=== PATIENT | male | born 1955 | race Caucasian/White ===

== ENCOUNTER → 2018-03-10 | Outpatient (CLI) | payer OTHER ==
--- NOTE | 2018-03-10 11:50 | RAD ---
EXAM: Head CT without contrast. HISTORY: Trauma one year ago. Headaches. TECHNIQUE: Computed tomographic images of the head were obtained without contrast. *One or more of the following individualized dose reduction techniques were utilized for this examination: 1. Automated exposure control. 2. Adjustment of the mA and/or kV according to patient size. 3. Use of iterative reconstruction technique. COMPARISON: None. FINDINGS: There is no acute or subacute extra-axial or intraparenchymal hemorrhage. There is no mass effect or midline shift. There is no hydrocephalus. There is mild age-appropriate cerebral volume loss. There is mild right ethmoid and sphenoid sinus mucosal thickening. There is evidence of lens surgery. There are suspected right antrostomy/uncinectomy changes. There is a tiny amount of fluid within the mastoid air cells. IMPRESSION: No acute intracranial findings. Electronically signed by: Alexia Chavez MD (03/10/2018 11:45 AM) [id number]
== END | disposition home or self-care (01) ==
LOC: CT 10:57
PROVIDERS: ATTEND Registered Nurse
DX: S09.90XD Unspecified injury of head, subsequent encounter (principal); X58.XXXD Exposure to other specified factors, subsequent encounter
CPT/HCPCS: 70450

== ENCOUNTER 2018-06-02 09:57 | Emergency (ER) | payer OTHER ==
[~2018-06-02] VITALS: Ht 167.6 cm; Wt 94.6 kg
--- NOTE | 2018-06-02 10:22 | PHYS DOC ---
Past History Past Medical History: GERD, Hypertension Past Surgical History: Other Alcohol Use: Occasionally Drug Use: None Adult General Chief Complaint Chief Complaint: DIARRHEA HPI HPI Patient is a 62-year-old male presents with diarrhea. This started 2 days ago. He notes that is black stool. Denies any significant abdominal pain. Prior to having the diarrhea, he had [facility]. He had blood work obtained just before the diarrhea started and received the results today by being told that he needed to present to the emergency department due to severely low sodium. Patient denies any significant abdominal pain. Denies any nausea or vomiting. Denies any recent travel or weight loss. Nothing seems to make the symptoms better or worse. Denies any lightheadedness.[] Review of Systems Review of Systems Constitutional: Denies fever or chills [] Eyes: Denies change in visual acuity, redness, or eye pain [] HENT: Denies nasal congestion or sore throat [] Respiratory: Denies cough or shortness of breath [] Cardiovascular: No chest pain or palpitations[] GI: See history of present illness[] : Denies dysuria or hematuria [] Musculoskeletal: Denies back pain or joint pain [] Integument: Denies rash or skin lesions [] Neurologic: Denies headache, focal weakness or sensory changes [] Endocrine: Denies polyuria or polydipsia [] All other systems were reviewed and found to be within normal limits, except as documented in this note. Current Medications Current Medications Current Medications Medications (Trade) Dose Ordered Sig/Petey Start Time Stop Time Status Last Admin Dose Admin Hyoscyamine (Anaspaz) 0.125 mg 1X ONCE 06/02/18 10:30 06/02/18 10:31 UNV Sodium Chloride 1,000 ml @ 1,000 mls/hr 1X ONCE 06/02/18 10:30 06/02/18 11:29 UNV Allergies Allergies Allergies Coded Allergies Type Severity Reaction Last Updated Verified No Known Drug Allergies 06/02/18 No Physical Exam Physical Exam Constitutional: Well developed, well nourished, no acute distress, non-toxic appearance. [] HENT: Normocephalic, atraumatic, bilateral external ears normal, oropharynx moist, no oral exudates, nose normal. [] Eyes: PERRLA, EOMI, conjunctiva normal, no discharge. [] Neck: Normal range of motion, no tenderness, supple, no stridor. [] Cardiovascular:Heart rate regular rhythm, no murmur [] Lungs & Thorax: Bilateral breath sounds clear to auscultation [] Abdomen: Bowel sounds normal, soft, no tenderness, no masses, no pulsatile masses. [] Skin: Warm, dry, no erythema, no rash. [] Back: No tenderness, no CVA tenderness. [] Extremities: No tenderness, no cyanosis, no clubbing, ROM intact, no edema. [] Neurologic: Alert and oriented X 3, normal motor function, normal sensory function, no focal deficits noted. [] Psychologic: Affect normal, judgement normal, mood normal. [] Current Patient Data Vital Signs Vital Signs Date Time Temp Pulse Resp B/P (MAP) Pulse Ox O2 Delivery O2 Flow Rate FiO2 06/02/18 10:14 98.1 70 16 99 Room Air EKG EKG [] Radiology/Procedures Radiology/Procedures [] Course & Med Decision Making Course & Med Decision Making Pertinent Labs and Imaging studies reviewed. (See chart for details) ED course: Patient arrived, was placed in bed, and tolerated exam well. IV fluids were started. After the return of the laboratory studies, a dose of Protonix was given. Findings were discussed with patient who voiced understanding. Consultation was made with hospitalist service who graciously accepted but recommended the patient be transferred to [facility] due to both nephro and GI availability. [facility] Patient was transferred in improved condition. Medical decision making: Patient has hyponatremia along with evidence of a GI bleed. He is not dangerously anemic given his normal H&H at this time. Patient is being admitted/transferred for further evaluation and treatment.[] Dragon Disclaimer Dragon Disclaimer This electronic medical record was generated, in whole or in part, using a voice recognition dictation system. Departure Departure: Impression: Primary Impression: Hyponatremia Additional Impressions: GI bleed Diarrhea Disposition: 05 TRANSFER OTHER Condition: IMPROVED Referrals: PCP,NO (PCP) Problem Qualifiers Additional Impressions: GI bleed GI bleed type/associated pathology: unspecified gastrointestinal hemorrhage type Qualified Codes: K92.2 - Gastrointestinal hemorrhage, unspecified Diarrhea Diarrhea type: unspecified type Qualified Codes: R19.7 - Diarrhea, unspecified PAT VILLA DO Jun 02, 2018 10:22
[2018-06-02] MEDS ORDERED: IV NORMAL SALINE 1,000ML 1,000 ML IV ONE ×2 (10:30→15:30)
[2018-06-02 10:41] LABS: BASO % 1 % (0-3); EOS # 0.4 x10^3/uL (0.0-0.7); EOS % 7 % (0-3); HEMATOCRIT 40.6 % (39.0-53.0); HEMOGLOBIN 14.1 g/dL (13.0-17.5); LYMPH # 0.6 x10^3/uL (1.0-4.8); LYMPH % 11 % (24-48); MEAN CORPUSCULAR HEMOGLOBIN 33 pg (25-35); MEAN CORPUSCULAR HGB CONC 35 g/dL (31-37); MEAN CORPUSCULAR VOLUME 96 fL (79-100); MONO # 0.8 x10^3/uL (0.0-1.1); MONO % 13 % (0-9); NEUT % 69 % (31-73); PLATELET COUNT 228 x10^3/uL (140-400); RED BLOOD COUNT 4.26 x10^6/uL (4.30-5.70); RED CELL DISTRIBUTION WIDTH 13.2 % (11.5-14.5); WHITE BLOOD COUNT 5.8 x10^3/uL (4.0-11.0)
[2018-06-02] MEDS ORDERED: HYOSCYAMINE 0.125 MG TAB.RAPDIS PO ONE (10:45)
[2018-06-02 10:54] LABS: ALBUMIN 3.9 g/dL (3.4-5.0); ALBUMIN/GLOBULIN RATIO 1.4 (1.0-1.7); CALCIUM 8.8 mg/dL (8.5-10.1); CREATININE 0.8 mg/dL (0.7-1.3); GFR 98.3; POTASSIUM 5.1 mmol/L (3.5-5.1); TOTAL BILIRUBIN 0.5 mg/dL (0.2-1.0); TOTAL PROTEIN 6.7 g/dL (6.4-8.2)
[2018-06-02 11:40] LABS: FECAL OB PT POSITIVE (NEG)
[2018-06-02] MEDS ORDERED: PANTOPRAZOLE IV 40 MG VIAL. IVP ONE (12:10)
[2018-06-02 13:30] VITALS: BP 158/78
== END 2018-06-02 16:55 | disposition short-term general hospital (02) ==
LOC: ER 09:57
DX: K92.2 Gastrointestinal hemorrhage, unspecified (principal); E87.1 Hypo-osmolality and hyponatremia; R19.7 Diarrhea, unspecified; K21.9 Gastro-esophageal reflux disease without esophagitis; I10 Essential (primary) hypertension
CPT/HCPCS: 36415; 80053; 82274; 83690; 85025; 85610; 96361; 96374; 99285; C9113; J7030